=== PATIENT | male | born 1995 | race African-American/Black ===

== ENCOUNTER → 2017-09-29 | Outpatient (CLI) | payer BC ==
--- NOTE | 2017-09-29 12:37 | DIAGNOSTIC IMAGING REPORT ---
ABDOMEN AND PELVIS CT WITHOUT CONTRAST CT DOSE: 275.80 mGy.cm HISTORY: R30.0 [id number] Gross hematuria TECHNIQUE: Multiaxial CT images of the abdomen and pelvis were performed without contrast. A dose lowering technique was utilized adhering to the principles of ALARA. COMPARISON STUDY: None available FINDINGS: Lung bases are generally clear. No pneumatosis or pneumoperitoneum identified. Imaged inferior cardiac chambers are unremarkable. Evaluation of the solid abdominal organs is limited without the use of IV contrast. Within the limitations of the study, the liver, spleen, gallbladder, pancreas and adrenal glands are within normal limits. Kidneys, ureters and urinary bladder are within normal limits. No nephrolithiasis or ureteral calculi identified. No obstructive uropathy. Aorta is normal in course and caliber. No bulky adenopathy identified. There is suggestion of mild free pelvic fluid. No bowel obstruction or focal bowel wall thickening identified. There is an air-filled tubular structure within the right lower quadrant suggesting a noninflamed appendix. High attenuating material is noted towards the base of this structure, image 298 series 3. Soft tissues are unremarkable. Bones appear to be intact. Indeterminate 6 mm sclerotic focus of the right iliac bone is noted without definite aggressive features identified. IMPRESSION: 1. No nephrolithiasis, ureteral calculi or obstructive uropathy. 2. Mild free pelvic fluid of unknown etiology. 3. Suggested appendicolith or inspissated stool near the proximal appendiceal lumen without evidence of acute appendicitis. Electronically signed by: Lakhwinder Camarillo M.D. 09/29/2017 12:35 PM Dictated Date/Time: 09/29/2017 12:28 PM
== END | disposition home or self-care (01) ==
LOC: C.CTS 12:15
PROVIDERS: ATTEND Urology
DX: R31.0 Gross hematuria (principal); R30.0 Dysuria

== ENCOUNTER 2017-11-01 19:11 | Emergency (ER) | payer BC ==
[~2017-11-01] VITALS: Ht 172.7 cm; Wt 69.1 kg
[2017-11-01 19:21] VITALS: TEMP 36.7; Ht 172.7 cm; Wt 69.1 kg
[2017-11-01] MEDS ORDERED: OXYCODONE HCL IR 5 MG TAB (IMMEDIATE RELEASE) PO STA (20:36)
[2017-11-01] MEDS ORDERED: IBUPROFEN 600 MG TAB PO STA (20:36)
[2017-11-01] MEDS ORDERED: URINARY MED PO (21:01)
--- NOTE | 2017-11-01 21:05 | DIAGNOSTIC IMAGING REPORT ---
R SHOULDER MIN 2 VIEWS ROUTINE CLINICAL HISTORY: Right shoulder pain following injury. COMPARISON: None FINDINGS: Alignment of the right glenohumeral joint is anatomic. There is no acute fracture. Equivocal subtle elevation of the distal right clavicle with respect to the acromion is probably within normal limits. IMPRESSION: 1. No acute fracture. Anatomic alignment of the right glenohumeral joint. 2. Equivocal subtle elevation of the distal right clavicle with respect to the acromion is likely within normal limits. AC joint separation is considered less likely although could be correlated with point tenderness. Electronically signed by: Erasmo Lam M.D. 11/01/2017 9:03 PM Dictated Date/Time: 11/01/2017 9:02 PM
[2017-11-01] MEDS ORDERED: OXYCODONE IR HOME PACK PO ONE (21:15)
[2017-11-01 21:26] VITALS: BP 125/76; PULSE 70; O2SAT 100
--- NOTE | 2017-11-02 04:13 | EMERGENCY ROOM VISIT NOTE ---
History Report prepared by Raven: Wai Anand Under the Supervision of: Dr. Lul Kelley M.D. First contact with patient: 20:27 Chief Complaint: SHOULDER PAIN Stated Complaint: R SHOULDER PAIN History of Present Illness The patient is a 21 year old male who presents to the Emergency Room with complaints of persistent right shoulder pain for 20 minutes LICENSED ESTHETICIAN. He states that he was at the gym playing basketball when he went up for a lay-up and got caught by someone who forced his arm upwards. He heard an audible click in his right shoulder. He reports the pain is worsened with movement. He currently rates his pain a 8/10 in severity. He reports feeling a tingling sensation initially, though denies any numbness, weakness or tingling. He has not taken any medication for the pain. He has a ventricular septal defect. He denies any other underlying medical problems. NKDA. Source of History: patient Onset: 20 mintues LICENSED ESTHETICIAN Position: shoulder (right) Symptom Intensity: 8/10 Timing: other (persistent) Modifying Factors (Worsening): movement Associated Symptoms: No weakness, No numbness Note: He denies any tingling sensations. Review of Systems See HPI for pertinent positives and negatives. A total of ten systems were reviewed and were otherwise negative. Past Medical & Surgical Medical Problems: (1) VSD (ventricular septal defect) Family History No significant family history Social History Smoking Status: Never Smoker Smokeless Tobacco Use: No Alcohol Use: none Drug Use: none Marital Status: single Housing Status: lives with roommate Occupation Status: [employer] student Current/Historical Medications Scheduled [Urinary Med], 1 TAB PO DAILY Allergies Coded Allergies: No Known Allergies (Unverified , 11/01/17) Physical Exam Vital Signs Date Time Temp Pulse Resp B/P (MAP) Pulse Ox O2 Delivery O2 Flow Rate FiO2 11/01/17 21:26 70 16 125/76 100 11/01/17 20:29 60 18 121/97 100 11/01/17 19:21 36.7 86 16 121/88 97 Room Air Physical Exam GENERAL: Awake, alert, uncomfortable-appearing, in no distress HENT: Normocephalic, atraumatic. Oropharynx unremarkable. EYES: Normal conjunctiva. Sclera non-icteric. NECK: Supple. No nuchal rigidity. FROM. No masses. RESPIRATORY: Clear to auscultation. No wheezes. CARDIAC: Normal rate. Normal rhythm. Holosystolic murmur. No rubs. Extremities warm and well perfused. Pulses equal. No JVD. MUSCULOSKELETAL: Atraumatic. Chest examination reveals no tenderness. The back is symmetrical on inspection without obvious abnormality. No joint edema. RIGHT SHOULDER: Tenderness to anterior aspect of deltoid, no clavicle or ac joint tenderness. ROM preserved but limited secondary to pain. He has relatively normal extension. Flexion elicits pain as well as internal rotation. No weakness appreciated. External rotation function normal. Negative Speed's sign. Abduction limited to 80 degrees secondary to pain. Adduction was relatively normal. NEURO: Normal sensorium. No sensory or motor deficits noted. NVI over all dermatomes and myotomes in RUE SKIN: No rash or jaundice noted. Medical Decision & Procedures ER Provider Diagnostic Interpretation: Radiology results as stated below per my review and radiologist interpretation: R SHOULDER MIN 2 VIEWS ROUTINE CLINICAL HISTORY: Right shoulder pain following injury. COMPARISON: None FINDINGS: Alignment of the right glenohumeral joint is anatomic. There is no acute fracture. Equivocal subtle elevation of the distal right clavicle with respect to the acromion is probably within normal limits. IMPRESSION: 1. No acute fracture. Anatomic alignment of the right glenohumeral joint. 2. Equivocal subtle elevation of the distal right clavicle with respect to the acromion is likely within normal limits. AC joint separation is considered less likely although could be correlated with point tenderness. Electronically signed by: Erasmo Lam M.D. 11/01/2017 9:03 PM Dictated Date/Time: 11/01/2017 9:02 PM Medications Administered Medications (Trade) Dose Ordered Sig/Maite Route Start Time Stop Time Status Last Admin Dose Admin Ibuprofen (Motrin Tab) 600 mg NOW STAT PO 11/01/17 20:36 11/01/17 20:37 DC 11/01/17 20:36 600 MG Oxycodone HCl (Roxicodone Immediate Rel Tab) 5 mg NOW STAT PO 11/01/17 20:36 11/01/17 20:37 DC 11/01/17 20:36 5 MG Oxycodone HCl (Roxicodone Immediate Rel 5MG Home Pack) 1 homepack UD ONCE PO 11/01/17 21:15 11/01/17 21:16 DC 11/01/17 21:23 1 [facility] ED Course 2027: The patient was evaluated in room A6. A complete history and physical exam was performed. 2035: Ordered Oxycodone HCl 5 mg PO and Ibuprofen 600 mg PO 1913: I reassessed the patient at this time. He is resting comfortably. I discussed the results and treatment plan with the patient. I answered all pertaining questions that he had. He expressed understanding and verbalized agreement. The patient will be discharged home. 2114: Ordered Oxycodone HCl 1 [facility] PO Medical Decision Triage Nursing notes reviewed and agree them. The patient's history was concerning for traumatic injury. Differential diagnosis: Etiologies such as fracture, dislocation, neurovascular compromise, compartment syndrome, soft tissue injury, as well as others were entertained. Physical examination: Consistent with an isolated right shoulder injury. ER treatment provided: Motrin OxyIR Sling Ice On reassessment the patient felt better. Diagnostics interpreted by me: Imaging studies: Xrays as above. The patient hasn't injured his right shoulder. I suspect a rotator cuff injury. He will need rest, symptomatic treatment and follow-up with orthopedics.I gave my usual and customary discussion regarding this issue. By the evaluation outlined above other emergent etiologies such as those listed in the differential, as well as others, were deemed relatively unlikely. The patient was educated about the findings as listed above. All questions were answered and the patient was pleased with the treatment. Return instructions were outlined and the patient was discharged in stable condition. The patient was referred to [facility] orthopedics for follow-up for a recheck of the current condition. [place] Drug Monitoring Program Search Results: no issues identified Medication Reconcilliation Current Medication List: was personally reviewed by me Blood Pressure Screening Patient's blood pressure: Normal blood pressure Impression Primary Impression: Right shoulder strain Scribe Attestation The scribe's documentation has been prepared under my direction and personally reviewed by me in its entirety. I confirm that the note above accurately reflects all work, treatment, procedures, and medical decision making performed by me. Departure Information Dispostion Home / Self-Care Referrals No Doctor, Assigned (PCP) [facility] Forms HOME CARE DOCUMENTATION FORM, IMPORTANT VISIT INFORMATION Patient Instructions My [facility] Additional Instructions ORTHOPEDIC INSTRUCTIONS: DO NOT drive, drink alcohol, operate machinery, or perform dangerous activities today. You were given medications in the ER that can affect your ability to safely function or operate a vehicle. Oxycodone (OxyIR) 5mg: Take 1-2 pills every four hours for breakthrough pain. Avoid alcohol, operating machinery or dangerous equipment, working on ladders or roofs, DRIVING, or situations where being under the influence may be dangerous. It is recommended to use an [id number] stool softener such as Colace, 100mg twice daily while taking this medication to avoid constipation. Ibuprofen(Motrin, Advil) may be used for fever or pain. Use 600mg every six hours as needed. Take with food. Avoid using more than 2400mg in a 24 hour period. Do not use 2400mg per day for more than three consecutive days without physician direction. Prolonged inappropriate use can lead to stomach upset or ulcers. (AND/OR) Acetaminophen(Tylenol) may be used for fever or pain. Use 1000mg every six hours as needed. Avoid using more than 4000mg in a 24 hour period. Ice compresses for 20 minutes at a time four times daily for 2-3 days. Use the sling as instructed. Remove your arm from the sling 4-6 times a day and move all the joints around to keep them loose. Rest your injury. Return to the ER immediately for any numbness, tingling, severe pain, extreme swelling in the extremity or as needed. Call [facility], [phone], Friday to arrange follow up for your injury.
== END 2017-11-01 21:28 | disposition home or self-care (01) ==
LOC: C.EDB 19:12 → C.EDA 21:28
DX: S46.911A Strain of unspecified muscle, fascia and tendon at shoulder and upper arm level, right arm, initial encounter (principal); W51.XXXA Accidental striking against or bumped into by another person, initial encounter; Y93.67 Activity, basketball

== ENCOUNTER → 2017-11-04 | Outpatient (CLI) | payer BC ==
[~2017-11-04] MED LIST: URINARY MED PO
== END | disposition home or self-care (01) ==
LOC: C.RDSM 08:00
PROVIDERS: ATTEND Physical Medicine & Rehabilitation Sports Medicine
DX: M25.511 Pain in right shoulder (principal)

== ENCOUNTER → 2017-11-13 | Outpatient (CLI) | payer BC ==
--- NOTE | 2017-11-13 14:59 | DIAGNOSTIC IMAGING REPORT ---
R UPPER EXT JOINT WITHOUT CLINICAL HISTORY: 21 years-old Male with RT SHOULDER PAIN. Acute right shoulder pain with limited range of motion. Recent basketball-related injury. COMPARISON: Right shoulder radiographs 11/04/2017 and 11/01/2017. TECHNIQUE: Multiplanar, multi sequence MRI of the right shoulder was performed without intravenous contrast. FINDINGS: ROTATOR CUFF: The tendons of the rotator cuff including the supraspinatus, infraspinatus, teres minor and subcapularis are intact. The rotator cuff musculature is normal in morphology and signal. BICEPS TENDON: The longhead biceps tendon is intact. No evidence of tendinosis. The biceps ketan and anchor are intact. LABRUM: There is a tear of the mid anterior and anteroinferior portions of the labrum nicely seen on axial PD images 14 through 16 of series 5. Additionally, there appears to be a linear fissuring defect within the inferior glenoid articular cartilage as seen on image 15 series 5. Additionally, there is a small portion of bone cortex on image 16 series 5 within the glenohumeral joint compatible with an acute bony Bankart injury. There is no evidence for a paralabral cyst. GLENOHUMERAL JOINT: Articular cartilage as above. There is a small glenohumeral joint effusion. ACROMIOCLAVICULAR JOINT: The AC joint is intact without significant degenerative change or mass effect. No evidence of acute AC joint injury. No evidence of os acromiale. No subacromial/subdeltoid bursitis. OUTLET SPACES: The suprascapular notch and quadrilateral space are without obstructing or space occupying lesions. 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 SOFT TISSUES: The periarticular soft tissues are unremarkable. IMPRESSION: 1. 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 2. No rotator cuff or long head biceps tendon tear. 3. No evidence of acute AC joint separation. The above report was generated using voice recognition software. It may contain grammatical, syntax or spelling errors. Electronically signed by: Lakhwinder Camarillo M.D. 11/13/2017 2:57 PM Dictated Date/Time: 11/13/2017 2:36 PM
== END | disposition home or self-care (01) ==
LOC: C.MRI 13:29
PROVIDERS: ATTEND Physical Medicine & Rehabilitation Sports Medicine
DX: M25.511 Pain in right shoulder (principal)

== ENCOUNTER → 2018-04-16 | Outpatient (CLI) | payer BC | END | disposition home or self-care (01) | LOC: C.LABSPEC 17:46 | PROVIDERS: ATTEND Obstetrics & Gynecology | DX: R50.9 Fever, unspecified (principal) ==

== ENCOUNTER → 2018-04-27 | Outpatient (CLI) | payer BC ==
--- NOTE | 2018-04-28 08:46 | ECHOCARDIOGRAM REPORT ---
*NOTICE TO RECEIVING [employer]Y This information is strictly Confidential and protected under [place] law. [place] law prohibits you from making any further disclosure of this information unless further disclosure is expressly permitted by the written consent of the person to whom it pertains or is authorized by law. A general authorization for the release of medical or other information is not sufficient for this purpose. Hospital accepts no responsibility if the information is made available to any other person, INCLUDING THE PATIENT. Interpretation Summary * Name: SHARRI MINA Study Date: 04/27/2018 12:58 PM * Patient Location: [facility] HR: 70 * : 1995 (M/d/yyyy) Gender: Male Height: 69 in * Age: 22 yrs Ethnicity: AA Weight: 154 lb * Ordering Physician: Jim Uribe * Referring Physician: Jim Uribe * Performed By: Becca Case RDCS * * Reason For Study: HISTORY OF VSD, FEVER * BSA: 1.8 m2 * -- Conclusions -- * The left ventricle is borderline dilated. * Left ventricular systolic function is normal. * Right ventricular systolic pressure is normal. * Normal diastolic function * There is a membranous VSD that is non restrictive. Cannot exclude a vegetation at the site of the VSD. 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 Procedure Details * A complete two-dimensional transthoracic echocardiogram was performed (2D, M-mode, Doppler and color flow Doppler). Left Ventricle * The left ventricle is borderline dilated. * There is a membranous VSD that is non restrictive. Cannot exclude a vegetation at the site of the VSD. * There is normal left ventricular wall thickness. * Ejection Fraction = 60-65%. * Left ventricular systolic function is normal. * Normal diastolic function * The left ventricular wall motion is normal. Right Ventricle * The right ventricle is normal in size and function. Atria * The left atrial size is normal. * Right atrial size is normal. Mitral Valve * The mitral valve anatomy is normal. * Significant mitral regurgitation is absent. Tricuspid Valve * The tricuspid valve anatomy is normal. * There is mild tricuspid regurgitation. * Right ventricular systolic pressure is normal. Aortic Valve * The aortic valve is trileaflet. 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 * No hemodynamically significant valvular aortic stenosis. Pulmonic Valve * The pulmonic valve is not well seen, but is grossly normal. * Trace pulmonic valvular regurgitation. Pericardium/Pleural * There is no pericardial effusion. Great Vessels * Normal inferior vena cava diameter and respiratory variation suggests normal central venous pressure. MMode 2D Measurements and Calculations IVSd 1.0 cm IVSs 1.6 cm LVIDd 5.5 cm LVIDs 3.6 cm LVPWd 1.0 cm LVPWs 1.5 cm IVS/LVPW 0.99 FS 34.9 % EDV(Teich) 147.1 ml ESV(Teich) 53.6 ml EF(Teich) 63.5 % EDV(cubed) 165.9 ml ESV(cubed) 45.8 ml EF(cubed) 72.4 % % IVS thick 60.4 % % LVPW thick 48.2 % LV mass(C)d 220.2 grams LV mass(C)dI 119.1 grams/m\S\2 LV mass(C)s 217.7 grams LV mass(C)sI 117.8 grams/m\S\2 SV(Teich) 93.5 ml SI(Teich) 50.6 ml/m\S\2 SV(cubed) 120.1 ml SI(cubed) 65.0 ml/m\S\2 ACS 1.8 cm LA dimension 3.3 cm asc Aorta Diam 3.1 cm LVOT diam 2.1 cm LVOT area 3.4 cm\S\2 LVAd ap4 31.7 cm\S\2 LVLd ap4 7.6 cm EDV(MOD-sp4) 112.6 ml EDV(sp4-el) 111.9 ml LVAs ap4 17.4 cm\S\2 LVLs ap4 6.2 cm ESV(MOD-sp4) 40.0 ml ESV(sp4-el) 41.5 ml EF(MOD-sp4) 64.5 % EF(sp4-el) 62.9 % LVAd ap2 41.9 cm\S\2 LVLd ap2 9.0 cm EDV(MOD-sp2) 162.8 ml EDV(sp2-el) 166.5 ml LVAs ap2 21.8 cm\S\2 LVLs ap2 6.7 cm ESV(MOD-sp2) 57.6 ml ESV(sp2-el) 60.0 ml EF(MOD-sp2) 64.6 % EF(sp2-el) 64.0 % LVLd %diff 15.0 % EDV(MOD-bp) 144.8 ml LVLs %diff 7.8 % ESV(MOD-bp) 49.5 ml EF(MOD-bp) 65.8 % SV(MOD-sp4) 72.6 ml SI(MOD-sp4) 39.3 ml/m\S\2 SV(MOD-sp2) 105.2 ml SI(MOD-sp2) 56.9 ml/m\S\2 SV(MOD-bp) 95.3 ml SI(MOD-bp) 51.6 ml/m\S\2 SV(sp4-el) 70.4 ml SI(sp4-el) 38.1 ml/m\S\2 SV(sp2-el) 106.5 ml SI(sp2-el) 57.6 ml/m\S\2 Doppler Measurements and Calculations MV E max shahla 84.1 cm/sec MV A max shahla 45.8 cm/sec MV E/A 1.8 MV dec time 0.10 sec Ao V2 max 163.3 cm/sec Ao max PG 10.7 mmHg Ao max PG (full) 1.4 mmHg JOVANNI(V,A) 3.2 cm\S\2 JOVANNI(V,D) 3.2 cm\S\2 LV V1 max PG 9.3 mmHg LV V1 max 152.2 cm/sec PA V2 max 143.4 cm/sec PA max PG 8.2 mmHg PI end-d shahla 91.0 cm/sec TR max shahla 258.8 cm/sec
== END | disposition home or self-care (01) ==
LOC: C.CPL 12:56
PROVIDERS: ATTEND Obstetrics & Gynecology
DX: Q21.0 Ventricular septal defect (principal); R50.9 Fever, unspecified